=== PATIENT | male | born 1995 | race Caucasian/White ===

== ENCOUNTER → 2022-04-20 | Emergency (ER) | payer BC, SELFPAY ==
[2022-04-20 18:13] VITALS: BP 136/72; PULSE 100; RESP 16; TEMP 36.8; O2SAT 100
--- NOTE | 2022-04-20 18:18 | ED.URI ---
HPI - URI/Sore Throat General Chief Complaint: Unspecified Stated Complaint: Knott test Time Seen by Provider: 04/20/22 18:15 History of Present Illness HPI Narrative: 26-year-old male presents to the emergency room from his physician's office requesting emergent monotest. Patient has been experiencing a sore throat, fatigue, postnasal drip and sinus congestion for 3 days. Patient denies dysphagia or odynophagia. Denies fevers. Denies abdominal pain. Patient states that he sees red spots in the back of his throat. Related Data Home Medications Medication Instructions Recorded Confirmed No Home Medications 04/20/22 04/20/22 Allergies Allergy/AdvReac Type Severity Reaction Status Date / Time No Known Allergies Allergy Verified 04/20/22 18:16 Review of Systems Review of Systems: CONSTITUTIONAL: Denies fever, chills, or sweats. EYES: Denies visual changes, redness, or discharge. ENT: Reports sinus congestion, sore throat CARDIOVASCULAR: Denies chest pain, palpitations, or edema. RESPIRATORY: Denies cough or dyspnea. GASTROINTESTINAL: Denies abdominal pain, nausea, vomiting, or diarrhea. GENITOURINARY: Denies dysuria or hematuria. SKIN: Denies rash or itching. MUSCULOSKELETAL: Denies back pain, joint pain, or myalgia. NEUROLOGIC: Denies headache, numbness, dizziness, or weakness. PSYCHIATRIC: Denies anxiety or depression. Exam Narrative: GENERAL: Well-appearing, well-nourished, no physical limitations, and in no acute distress. HEAD: Normocephalic, atraumatic. EYES: Conjunctivae normal, PERRLA and EOMI. ENT: External nose normal, Nares clear, no rhinorrhea or epistaxis. Mucous membranes moist. Oropharynx without tonsillar hypertrophy exudate or other lesions. External ears normal, bilateral TMs normal bilaterally NECK: Supple. No adenopathy or masses. CHEST: Clear to auscultation. No respiratory distress. No wheezes rales or rhonchi. HEART: Regular rate and rhythm. No murmur heard. Normal peripheral pulses. EXTREMITIES: Normal range of motion. No edema. No clubbing or cyanosis SKIN: Warm, dry, no rash. No noted wounds NEURO: No focal deficits. Alert and oriented x3. MAEW. CN's II-XI intact bilaterally, normal gait PSYCH: Cooperative. Normal mood and affect. Course Vital Signs Vital signs: Vital Signs Temperature 36.8 C 04/20/22 18:13 Pulse Rate 100 04/20/22 18:13 Respiratory Rate 16 04/20/22 18:13 Blood Pressure 136/72 04/20/22 18:13 Pulse Oximetry 100 04/20/22 18:13 Oxygen Delivery Room Air 04/20/22 18:13 Temperature 36.8 C 04/20/22 18:13 Pulse Rate 100 04/20/22 18:13 Respiratory Rate 16 04/20/22 18:13 Blood Pressure 136/72 04/20/22 18:13 Pulse Oximetry 100 04/20/22 18:13 Oxygen Delivery Room Air 04/20/22 18:13 MDM - URI/Sore Throat Lab Data Labs: Lab Results 04/20/22 Range/Units 18:20 Monoscreen Negative (Negative) Discharge Plan Discharge Clinical Impression: Upper respiratory infection Patient Disposition: Home, Self-Care Condition: Stable Instructions: Antibiotic Form, Viral Syndrome (ED) Prescriptions: No Action No Home Medications Follow-up/Referrals: ,Adithya Perez MD [Primary Care Provider] - Time of Disposition: 19:01
[2022-04-20 18:51] LABS: Monoscreen Negative (Negative); Negative Monotest Control Negative (Negative); Positive Monotest Control Positive (Positive)
== END | disposition home or self-care (01) ==
PROVIDERS: Emergency Provider Nurse Practitioner Family; PCP Internal Medicine
DX: J06.9 Acute upper respiratory infection, unspecified (principal)
CPT/HCPCS: 36415; 86308; 96372; 99283; J1100